=== PATIENT | male | born 1970 | race Caucasian/White ===

== ENCOUNTER 2020-03-15 10:15 | Emergency (ER) | payer OTHER ==
[~2020-03-15] VITALS: Ht 167.6 cm; Wt 78.0 kg
[2020-03-15] MEDS ORDERED: KEPPRA1000 MG PO (10:18)
[2020-03-15] MEDS ORDERED: CIPRO HC OTIC S10 ML OTIC (11:39)
[2020-03-15 11:50] VITALS: BP 127/76
== END 2020-03-15 11:51 | disposition home or self-care (01) ==
LOC: ER 10:15
DX: H60.92 Unspecified otitis externa, left ear (principal); Z79.899 Other long term (current) drug therapy; Z88.0 Allergy status to penicillin